=== PATIENT | male | born 1995 | race Asian ===

== ENCOUNTER 2018-02-25 15:30 | Emergency (ER) | payer OTHER ==
[~2018-02-25] VITALS: Ht 170.2 cm; Wt 112.5 kg
[2018-02-25 15:31] VITALS: TEMP 37.1; Ht 170.2 cm; Wt 112.5 kg
[2018-02-25] MEDS ORDERED: SODIUM CHLORIDE 0.9% 1000ML 1,000 ML IV STA ×2 (15:40→18:52)
--- NOTE | 2018-02-25 15:52 | DIAGNOSTIC IMAGING REPORT ---
CHEST ONE VIEW PORTABLE CLINICAL HISTORY: Chest Pain dyspnea COMPARISON STUDY: No previous studies for comparison. FINDINGS: The bones soft tissues and hemidiaphragms are normal. The cardiomediastinal silhouette is normal. The lungs are clear. The pulmonary vasculature is normal. IMPRESSION: Negative chest. The above report was generated using voice recognition software. It may contain grammatical, syntax or spelling errors. Electronically signed by: Quan Ruiz M.D. 02/25/2018 3:51 PM Dictated Date/Time: 02/25/2018 3:51 PM
[2018-02-25 15:58] LABS: BASO % 0.1 %; BASO ABS # 0.01 K/uL (0-0.2); EOS % 0.2 %; EOS ABS # 0.02 K/uL (0-0.5); HEMATOCRIT 51.5 % (42-52); HEMOGLOBIN 17.4 g/dL (14.0-18.0); IG# 0.02 K/uL (0.00-0.02); LYMPH ABS # 2.03 K/uL (1.2-3.4); MEAN CELL VOLUME 90.4 fL (80-100); MEAN CORPUSCULAR HEMOGLOBIN 30.5 pg (25-34); MEAN CORPUSCULAR HGB CONC 33.8 g/dl (32-36); MEAN PLATELET VOLUME 9.5 fL (7.4-10.4); MONO % 6.5 %; MONO ABS # 0.66 K/uL (0.11-0.59); NEUT ABS # 7.42 K/uL (1.4-6.5); PLATELET COUNT 342 K/uL (130-400); RED CELL DISTRIBUTION WIDTH CV 13.3 % (11.5-14.5); RED CELL DISTRIBUTION WIDTH SD 43.2 fL (36.4-46.3); WHITE BLOOD COUNT 10.16 K/uL (4.8-10.8)
[2018-02-25 16:28] LABS: BLOOD UREA NITROGEN 11 mg/dl (7-18); CALCIUM 8.7 mg/dl (8.5-10.1); CARBON DIOXIDE 25 mmol/L (21-32); CREATININE 0.86 mg/dl (0.60-1.40); GLUCOSE 85 mg/dl (70-99); POTASSIUM 3.8 mmol/L (3.5-5.1); SODIUM 141 mmol/L (136-145)
[2018-02-25] MEDS ORDERED: MULT-513 PO (16:32)
[2018-02-25 16:44] LABS: CKMB < 1.0 ng/ml (0.5-3.6)
[2018-02-25 20:15] VITALS: BP 115/88; PULSE 105; O2SAT 99
--- NOTE | 2018-02-25 21:32 | EMERGENCY ROOM VISIT NOTE ---
History Report prepared by Mirela: Ness Castro Under the Supervision of: Dr. Jovanni Woodson D.O. 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 He reports his chest pain began again at 1400 today, so he went to [facility] and had an EKG done which was abnormal, so he came to the ED. He states his chest pain episodes are sharp and uncomfortable and last for about 5-10 seconds once a day. The patient states that stretching his arms worsens his pain but nothing makes it better. Pt denies headache, change in vision, fevers, shortness of breath, nausea, vomiting, diarrhea, pain with urination, and melena. Patient denies diabetes, hypertension, hyperlipidemia, CAD, and history of sudden at a young age. Patient denies swelling of calves, history of immobilization or recent surgery, prior history of DVT, hemoptysis, history of malignancy, or control/estrogen use. He does admit to a recent trip. 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 Negative previous heart disease, family history of heart disease, history of clotting disorders. Review of Systems See HPI for pertinent positives & negatives. A total of 10 systems reviewed and were otherwise negative. Social History Smoking Status: Former Smoker Alcohol Use: occasionally Drug Use: none Marital Status: single Housing Status: lives with roommate Occupation Status: [employer] student Current/Historical Medications Scheduled Multivitamins/Minerals (Mvi With Minerals), 1 TAB PO DAILY Allergies Coded Allergies: No Known Allergies (Unverified , 03/24/14) Physical Exam Vital Signs Date Time Temp Pulse Resp B/P (MAP) Pulse Ox O2 Delivery O2 Flow Rate FiO2 02/25/18 20:15 105 18 115/88 99 Room Air 02/25/18 20:10 100 8/28/18 19:20 99 18 107/89 98 Room Air 02/25/18 18:45 70 18 123/77 95 02/25/18 18:00 105 18 123/77 97 Room Air 02/25/18 18:00 95 18 123/77 97 Room Air 02/25/18 17:15 112 20 136/95 98 Room Air 02/25/18 16:49 114 02/25/18 16:39 135/90 02/25/18 16:30 111 11 97 02/25/18 16:13 175/127 02/25/18 16:10 111 20 150/97 97 Room Air 02/25/18 16:00 112 12 97 02/25/18 15:49 150/94 02/25/18 15:39 98 Room Air 02/25/18 15:38 149/90 02/25/18 15:31 37.1 121 18 148/99 98 Room Air Physical Exam GENERAL: Laying in bed, alert, well appearing, well nourished, no distress, non- toxic EYE EXAM: normal conjunctiva. OROPHARYNX: no exudate, no erythema, lips, buccal mucosa, and tongue normal and mucous membranes are moist NECK: supple, no nuchal rigidity, no adenopathy, non-tender LUNGS: Clear to auscultation. Normal chest wall mechanics HEART: no murmurs, S1 normal and S2 normal CHEST: Reproducible left anterior chest wall pain, different than stated complaint ABDOMEN: abdomen soft, non-tender, normo-active bowel sounds, no masses, no rebound or guarding. BACK: Back is symmetrical on inspection and there is no deformity, no midline tenderness, no CVA tenderness. SKIN: no rashes and no bruising UPPER EXTREMITIES: upper extremities are grossly normal. LOWER EXTREMITIES: No pitting edema. Calves equal. NEURO EXAM: Normal sensorium, cranial nerves II-XII grossly intact, normal speech, no gross weakness of arms, no gross weakness of legs. Medical Decision & Procedures ER Provider Diagnostic Interpretation: Radiology results as stated below per my review and the radiologist's interpretation: CHEST ONE VIEW PORTABLE CLINICAL HISTORY: Chest Pain dyspnea COMPARISON STUDY: No previous studies for comparison. FINDINGS: The bones soft tissues and hemidiaphragms are normal. The cardiomediastinal silhouette is normal. The lungs are clear. The pulmonary vasculature is normal. IMPRESSION: Negative chest. The above report was generated using voice recognition software. It may contain grammatical, syntax or spelling errors. Electronically signed by: Quan Ruiz M.D. 02/25/2018 3:51 PM Laboratory Results 02/25/18 15:40 Red Blood Count 5.70, Mean Corpuscular Volume 90.4, Mean Corpuscular Hemoglobin 30.5, Mean Corpuscular Hemoglobin Concent 33.8, Mean Platelet Volume 9.5, Neutrophils (%) (Auto) 73.0, Lymphocytes (%) (Auto) 20.0, Monocytes (%) (Auto) 6.5, Eosinophils (%) (Auto) 0.2, Basophils (%) (Auto) 0.1, Neutrophils # (Auto) 7.42, Lymphocytes # (Auto) 2.03, Monocytes # (Auto) 0.66, Eosinophils # (Auto) 0.02, Basophils # (Auto) 0.01 02/25/18 15:40 Test 02/25/18 15:40 02/25/18 18:49 White Blood Count 10.16 K/uL (4.8-10.8) Red Blood Count 5.70 M/uL (4.7-6.1) Hemoglobin 17.4 g/dL (14.0-18.0) Hematocrit 51.5 % (42-52) Mean Corpuscular Volume 90.4 fL (80-100) Mean Corpuscular Hemoglobin 30.5 pg (25-34) Mean Corpuscular Hemoglobin Concent 33.8 g/dl (32-36) Platelet Count 342 K/uL (130-400) Mean Platelet Volume 9.5 fL (7.4-10.4) Neutrophils (%) (Auto) 73.0 % Lymphocytes (%) (Auto) 20.0 % Monocytes (%) (Auto) 6.5 % Eosinophils (%) (Auto) 0.2 % Basophils (%) (Auto) 0.1 % Neutrophils # (Auto) 7.42 K/uL (1.4-6.5) Lymphocytes # (Auto) 2.03 K/uL (1.2-3.4) Monocytes # (Auto) 0.66 K/uL (0.11-0.59) Eosinophils # (Auto) 0.02 K/uL (0-0.5) Basophils # (Auto) 0.01 K/uL (0-0.2) RDW Standard Deviation 43.2 fL (36.4-46.3) RDW Coefficient of Variation 13.3 % (11.5-14.5) Immature Granulocyte % (Auto) 0.2 % Immature Granulocyte # (Auto) 0.02 K/uL (0.00-0.02) D-Dimer < 190 ug/L FEU (0-500) Anion Gap 10.0 mmol/L (3-11) Est Creatinine Clear Calc Drug Dose 161.4 ml/min Estimated GFR () 142.7 Estimated GFR (Non- 123.1 BUN/Creatinine Ratio 12.8 (10-20) Calcium Level 8.7 mg/dl (8.5-10.1) Total Creatine Kinase 113 U/L (39-308) Creatine Kinase MB < 1.0 ng/ml (0.5-3.6) Creatine Kinase MB Ratio (0-3.0) Thyroid Stimulating Hormone (TSH) 2.230 uIu/ml (0.300-4.500) Troponin I < 0.015 ng/ml (0-0.045) Laboratory results per my review. Medications Administered Medications (Trade) Dose Ordered Sig/Gayle Route Start Time Stop Time Status Last Admin Dose Admin Sodium Chloride 1,000 ml @ 999 mls/hr Q1H1M STAT IV 02/25/18 15:40 02/25/18 16:40 DC 02/25/18 15:47 999 MLS/HR Sodium Chloride 1,000 ml @ 999 mls/hr Q1H1M STAT IV 02/25/18 18:52 02/25/18 19:52 DC 02/25/18 18:52 999 MLS/HR ECG Per My Interpretation Indication: chest pain Rate (beats per minute): 119 Rhythm: sinus tachycardia Findings: nonspecific-ST abn (Inferior), other (flipped T waves) Comparison ECG Date: no prior available ED Course ED COURSE: Vital signs were reviewed and showed normotensive The patients medical record was reviewed The above diagnostic studies were performed and reviewed. ED treatments and interventions as stated above. 1534: The patient was evaluated in room A9. A complete history and physical examination was performed. 1540: Ordered Sodium Chloride 1000 ml @ 999 mls/hr IV 1835: I reviewed the patient's case with Dr. Ceja, Cardiology. He recommends a follow up outpatient Echo. 1851: Ordered Sodium Chloride 1000 ml @ 999 mls/hr IV 2028: Upon reevaluation, the patient is feeling improved. Bedside ultrasound showed no pericardial effusion. I discussed my findings with the patient and he understands and agrees with the treatment plan. Based on the patients age, coexisting illnesses, exam and lab findings the decision to treat as an outpatient was made. The patient remained stable while under my care. The patient appeared well at the time of discharge. Medical Decision Differential diagnoses includes but is not limited to acute coronary syndrome, myocardial infarction, pericarditis, pulmonary embolus, aortic dissection, pneumonia, pneumothorax, musculoskeletal, shingles, esophageal. Patient is a 20-year-old male who presents the ER referred in by an outside facility for chest pain which is been present for the past 2 weeks off and on and last for about 5-10 seconds. It does change with movement of his arm. No cardiac risk factors with the exception of smoking. CBC along with BMP was unremarkable. TSH was normal. Troponins were negative 2. D-dimer was negative. EKG did show flipped T waves in the inferior leads. Did discuss with cardiology. They agreed that this is most likely noncardiac. We made the decision that the patient follow-up as an outpatient as a agreed that this is reasonable to get an outpatient echo. Discussed with care managers who will help assist this gentleman get an appointment tomorrow or the following day to see cardiology. Bedside ultrasound was performed by myself and did show no pericardial effusion. Nothing to suggest a myocarditis or pericarditis at this time. Discussed with Pt concerning signs and symptoms to watch out for. Pt was instructed to follow up with their PCP and discussed with the patient their option to return to the ED at anytime for persistent or worsening symptoms. The appropriate anticipatory guidance and out-patient management, including indications for return to the emergency department, were explained at length to the patient and understood. Medication Reconcilliation Current Medication List: was personally reviewed by me Blood Pressure Screening Patient's blood pressure: Normal blood pressure Blood pressure disposition: Did not require urgent referral Consults Time Called: 1829 Consulting Physician: Dr. Ceja, Cardiology Returned Call: [phone] I reviewed the patient's case with Dr. Ceja, Cardiology. He recommends a follow up outpatient Echo. Impression Primary Impression: Chest pain Additional Impression: Acute electrocardiogram changes Scribe Attestation The scribe's documentation has been prepared under my direction and personally reviewed by me in its entirety. I confirm that the note above accurately reflects all work, treatment, procedures, and medical decision making performed by me. Departure Information Dispostion Home / Self-Care Referrals [facility] (PCP) Forms HOME CARE DOCUMENTATION FORM, IMPORTANT VISIT INFORMATION Patient Instructions My [facility] Additional Instructions Please follow up with your primary care doctor with in the next 24 hours. Any worsening of your symptoms, please return to the ED immediately. This includes any fevers greater than 100.4, worsening pain, chest pain, shortness breath, persistent nausea, vomiting, unable to eat or drink, or any other concerning signs or symptoms from your standpoint. Please make sure that you call cardiology tomorrow to set up appointment. He will need an outpatient echo. Problem Qualifiers Primary Impression: Chest pain Chest pain type: unspecified Qualified Codes: R07.9 - Chest pain, unspecified
== END 2018-02-25 20:40 | disposition home or self-care (01) ==
LOC: C.EDB 15:30 → C.EDA 20:40
DX: R07.9 Chest pain, unspecified (principal); R94.31 Abnormal electrocardiogram [ECG] [EKG]; Z87.891 Personal history of nicotine dependence